=== PATIENT | male | born 1995 | race Caucasian/White ===

== ENCOUNTER 2017-12-12 14:59 | Emergency (ER) | payer BC ==
--- NOTE | 2017-12-12 16:55 | UC ---
UC General HPI - HPI Summary HPI Summary: PT IS C/O SINUS INFECTION, l EAR PAIN AND SORE THROAT PLUS COUGH WITH CHEST CONGESTION. NO FEVER. ASTHAM A CHILD - History of Current Complaint Chief Complaint: UCRespiratory Stated Complaint: CONGESTION,EAR PAIN,SORE THROAT Time Seen by Provider: 12/12/17 16:48 Pain Intensity: 5 - Allergy/Home Medications Allergies/Adverse Reactions: Allergies Allergy/AdvReac Type Severity Reaction Status Date / Time No Known Allergies Allergy Verified 12/12/17 15:25 Home Medications: Home Medications Dextroamphetamine/Amphetamine [Adderall Xr 30 mg Capsule] 30 mg PO DAILY [History Confirmed 12/12/17] FLUoxetine* [Prozac*] 30 mg PO DAILY 12/12/17 [History Confirmed 12/12/17] Ibuprofen TAB* [Motrin TAB* 400 MG] 400 mg PO Q6H PRN 12/12/17 [History Confirmed 12/12/17] guaiFENesin ER TAB [Mucinex*] 600 mg PO BID 12/12/17 [History Confirmed 12/12/17 ] PMH/Surg Hx/FS Hx/Imm Hx - Additional Past Medical History Additional PMH: ADHD, ANXIETY, CHILDHOOD ASTHMA - Surgical History Surgical History: Yes Surgery Procedure, Year, and Place: ear tubes - Family History Known Family History: Positive: None - Social History Occupation: Student Lives: Dormitory/Roommates Alcohol Use: Occasionally Substance Use Type: None Smoking Status (MU): Never Smoked Tobacco - Immunization History Vaccination Up to Date: Yes Review of Systems Constitutional: Negative Skin: Negative Eyes: Negative ENT: Sore Throat, Ear Ache, Nasal Discharge, Sinus Congestion Respiratory: Cough, Other - WHEEZING Cardiovascular: Negative Gastrointestinal: Negative Genitourinary: Negative Motor: Negative Neurovascular: Negative Musculoskeletal: Negative Neurological: Negative Psychological: Negative Is Patient Immunocompromised?: No All Other Systems Reviewed And Are Negative: Yes Physical Exam Triage Information Reviewed: Yes Appearance: Well-Appearing Vital Signs: Initial Vital Signs Temp 98.4 F 12/12/17 15:20 Pulse 98 12/12/17 15:20 Resp 16 12/12/17 15:20 BP 124/73 12/12/17 15:20 Pulse Ox 100 12/12/17 15:20 Vital Signs Reviewed: Yes Eyes: Positive: Conjunctiva Clear ENT: Positive: Pharynx normal, Nasal congestion, Nasal drainage - CLEAR, TMs normal - right, TM red - left Neck: Positive: Supple, Nontender, No Lymphadenopathy Respiratory: Positive: Lungs clear, No respiratory distress, Decreased breath sounds. Negative: Crackles, Rhonchi, Wheezing Cardiovascular: Positive: RRR, No Murmur, Pulses Normal Abdomen Description: Positive: Nontender, No Organomegaly, Soft Bowel Sounds: Positive: Present Musculoskeletal: Positive: ROM Intact Neurological: Positive: Alert Psychological: Positive: Age Appropriate Behavior Skin Exam: Normal Course/Dx - Course Course Of Treatment: will tx OM with augmentin which will provide potential sinus and lung coverage plus albuterol given the cough and decreased BS's. - Differential Dx - Multi-Symptom Provider Diagnoses: URI, L OM, Bronchitis Discharge - Discharge Plan Condition: Stable Disposition: HOME Prescriptions: Albuterol HFA INHALER* [Ventolin HFA Inhaler*] 2 puff INH Q6H 14 Days #1 mdi Amoxicillin/Clavulanate TAB* [Augmentin TAB 875*] 875 mg PO BID 10 Days #20 tab Patient Education Materials: Ear Infection (ED), Upper Respiratory Infection ( ED), Acute Bronchitis (ED) Referrals: No Primary Care Phys,NOPCP [Primary Care Provider] - Additional Instructions: FOLLOW UP [facility] IN 5 DAYS FOR A RECHECK OR SOONER IF WORSE.
== END 2017-12-12 17:00 | disposition home or self-care (01) ==
LOC: UCCORT 14:59
DX: H66.92 Otitis media, unspecified, left ear (principal); J40 Bronchitis, not specified as acute or chronic; F90.9 Attention-deficit hyperactivity disorder, unspecified type; F41.9 Anxiety disorder, unspecified
CPT/HCPCS: 99202; G0463

== ENCOUNTER 2018-07-30 13:27 | Emergency (ER) | payer BC ==
--- NOTE | 2018-07-30 13:33 | UC ---
Skin Complaint HPI - HPI Summary HPI Summary: 22 yo male presents with RIGHT 5th toe pain. He tells me that he was in [place] yesterday and playing volleyball on the beach when his toe bent sideways. He had immediate pain and looked down and saw his toe pointed laterally. He pushed it back into place. Since that time has had pain, selling, and bruising. He is ambulatory with mild pain. - History of Current Complaint Time Seen by Provider: 07/30/18 13:33 Stated Complaint: RIGHT FOOT TOE COMPLAINT Hx Obtained From: Patient Onset/Duration: Sudden Onset Onset Severity: Moderate Current Severity: Mild Pain Intensity: 3 Pain Scale Used: 0-10 Numeric - Allergy/Home Medications Allergies/Adverse Reactions: Allergies Allergy/AdvReac Type Severity Reaction Status Date / Time No Known Allergies Allergy Verified 07/30/18 13:37 Review of Systems Constitutional: Negative Skin: Negative Respiratory: Negative Cardiovascular: Negative Neurovascular: Negative Musculoskeletal: Other: - Right 5th toe pain Neurological: Negative Psychological: Negative All Other Systems Reviewed And Are Negative: Yes PMH/Surg Hx/FS Hx/Imm Hx - Additional Past Medical History Additional PMH: ADHD Psychological History: Anxiety, Depression - Surgical History Surgical History: Yes Surgery Procedure, Year, and Place: ear tubes - Family History Known Family History: Positive: None - Social History Occupation: Student Lives: Dormitory/Roommates Alcohol Use: Occasionally Substance Use Type: None Smoking Status (MU): Never Smoked Tobacco - Immunization History Vaccination Up to Date: Yes Physical Exam - Summary Physical Exam Summary: GENERAL: NAD. WDWN. No pain distress. SKIN: No rashes, sores, lesions, or open wounds. CHEST: No accessory muscle use. Breathing comfortably and in no distress. CV: Pulses intact PT and DP. Cap refill <2seconds MSK: RIGHT 5th toe: Mild edema and ecchymosis at base. FROM with mild pain. TTP about whole toe. NTTP MT or MTPs. NEURO: Alert. Sensations intact and symmetric B/L LEs PSYCH: Age appropriate behavior. Triage Information Reviewed: Yes Vital Signs: Vital Signs: Temp Pulse Resp BP Pulse Ox 98.8 F 93 14 121/68 100 07/30/18 13:33 07/30/18 13:33 07/30/18 13:33 07/30/18 13:33 07/30/18 13:33 Vital Signs Reviewed: Yes Course/Dx - Course Course Of Treatment: XR: IMPRESSION: Fracture of the midshaft of the proximal phalanx of the fifth digit with. lateral displacement of the distal fracture fragments. Toe was chucho taped to the 4th toe. Pt declined post-op shoe as he has comfortable footwear. Advised to RICE, take ibuprofen, and f/u with Orthopedics. - Diagnoses Provider Diagnoses: Fracture of the midshaft of the proximal phalanx of the right fifth digit with. lateral displacement of the distal fracture fragments Discharge - Sign-Out/Discharge Documenting (check all that apply): Patient Departure All imaging exams completed and their final reports reviewed: Yes - Discharge Plan Condition: Stable Disposition: HOME Patient Education Materials: Toe Fracture (ED) Referrals: No Primary Care Phys,NOPCP [Primary Care Provider] - Samule Kennedy MD [Medical Doctor] - As Soon As Possible Gerson Sanchez MD [Medical Doctor] - As Soon As Possible Additional Instructions: If you develop a fever, shortness of breath, chest pain, new or worsening symptoms - please call your PCP or go to the ED. 1) Please call Orthopedics at the number below to schedule a follow up appointment as soon as possible - Billing Disposition and Condition Condition: STABLE Disposition: Home
[2018-07-30 13:40] VITALS: BP 121/68
--- NOTE | 2018-07-30 13:59 | RAD ---
Indication: Right fifth digit injury. 3 views of the right fifth digit demonstrates a fracture through the midshaft of the proximal phalanx. There is lateral displacement of the distal fracture fragment. IMPRESSION: Fracture of the midshaft of the proximal phalanx of the fifth digit with lateral displacement of the distal fracture fragments
== END 2018-07-30 14:00 | disposition home or self-care (01) ==
LOC: UCCORT 13:27
DX: S92.511A Displaced fracture of proximal phalanx of right lesser toe(s), initial encounter for closed fracture (principal); X58.XXXA Exposure to other specified factors, initial encounter; Y93.68 Activity, volleyball (beach) (court); Y92.9 Unspecified place or not applicable
CPT/HCPCS: 99212; G0463

== ENCOUNTER 2019-01-08 17:27 | Emergency (ER) | payer BC ==
[2019-01-08 18:29] VITALS: BP 123/63
--- NOTE | 2019-01-08 19:15 | UC ---
Throat Pain/Nasal Jesús HPI - HPI Summary HPI Summary: Pt prsents with c/o worsening nasal congestion, sinus pressure and pain X 5 days. - History of Current Complaint Chief Complaint: UCGeneralIllness Stated Complaint: SINUSES Time Seen by Provider: 01/08/19 19:08 Hx Obtained From: Patient Onset/Duration: Gradual Onset, Lasting Days, Still Present, Worse Since - onset Severity: Moderate Pain Intensity: 5 Cough: Nonproductive Associated Signs & Symptoms: Positive: Sinus Discomfort, Nasal Discharge - Epiglottits Risk Factors Epiglottis Risk Factors: Negative - Allergies/Home Medications Allergies/Adverse Reactions: Allergies Allergy/AdvReac Type Severity Reaction Status Date / Time No Known Allergies Allergy Verified 01/08/19 18:23 Home Medications: Home Medications guaiFENesin [Mucinex] 600 mg PO ONCE 01/08/19 [History Confirmed 01/08/19] PMH/Surg Hx/FS Hx/Imm Hx Previously Healthy: Yes - Surgical History Surgical History: Yes Surgery Procedure, Year, and Place: ear tubes - Family History Known Family History: Positive: Cardiac Disease - Social History Occupation: Student Lives: Dormitory/Roommates Alcohol Use: Occasionally Substance Use Type: None Smoking Status (MU): Never Smoked Tobacco Have You Smoked in the Last Year: No - Immunization History Vaccination Up to Date: Yes Review of Systems All Other Systems Reviewed And Are Negative: Yes Constitutional: Positive: Chills, Fatigue Skin: Positive: Negative Eyes: Positive: Negative ENT: Positive: Nasal Discharge, Sinus Congestion, Sinus Pain/Tenderness Respiratory: Positive: Cough Cardiovascular: Positive: Negative Gastrointestinal: Positive: Negative Genitourinary: Positive: Negative Motor: Positive: Negative Neurovascular: Positive: Negative Musculoskeletal: Positive: Negative Neurological: Positive: Headache Psychological: Positive: Negative Is Patient Immunocompromised?: No Physical Exam Triage Information Reviewed: Yes Appearance: Ill-Appearing Vital Signs: Initial Vital Signs Temp 98.2 F 01/08/19 18:24 Pulse 76 01/08/19 18:24 Resp 16 01/08/19 18:24 BP 123/63 01/08/19 18:24 Pulse Ox 100 01/08/19 18:24 Vital Signs Reviewed: Yes Eye Exam: Normal ENT Exam: Other ENT: Positive: Nasal congestion, Sinus tenderness Dental Exam: Normal Neck exam: Normal Respiratory Exam: Normal Cardiovascular Exam: Normal Musculoskeletal Exam: Normal Neurological Exam: Normal Psychological Exam: Normal Skin Exam: Normal Throat Pain/Nasal Course/Dx - Differential Dx/Diagnosis Differential Diagnosis/HQI/PQRI: Sinusitis, URI Provider Diagnosis: Sinusitis Discharge - Sign-Out/Discharge Documenting (check all that apply): Patient Departure All imaging exams completed and their final reports reviewed: No Studies - Discharge Plan Condition: Stable Disposition: HOME Prescriptions: Amoxicillin PO (*) [Amoxicillin 875 MG (*)] 875 mg PO Q12H #20 tab Fexofenadine/Pseudoephedrine [Lori-D 24 Hour Tablet] 1 each PO DAILY #10 tab.er.24h Patient Education Materials: Sinusitis (ED) Referrals: [facility] [Outside] - If Needed No Primary Care Phys,NOPCP [Primary Care Provider] - - Billing Disposition and Condition Condition: STABLE Disposition: Home - Attestation Statements Provider Attestation: Per institutional requirements, I have reviewed the chart, however, I was not consulted specifically or made aware of this patient by the midlevel provider. I did not personally evaluate, interact with , or disposition this patient.
== END 2019-01-08 19:26 | disposition home or self-care (01) ==
LOC: UCCORT 17:27
DX: J32.9 Chronic sinusitis, unspecified (principal)
CPT/HCPCS: 99212; G0463